=== PATIENT | female | born 1955 | race Caucasian/White ===

== ENCOUNTER 2018-05-24 11:10 | Inpatient (IN) ==
--- NOTE | 2018-05-24 07:25 | P.HPUP ---
The Pre-Admit History and Physical Examination regarding the above named patient was reviewed (including, but not limited to, vital signs, heart, lungs, co-morbid conditions), and upon re-examination it is noted that: the patient's condition has not significantly changed since the last examination.
[2018-05-24] MEDS ORDERED: Metoprolol Tartrate 25 MG Tablet PO SCH (11:45)
[2018-05-24] MEDS ORDERED: Chlorhexidine Gluconate 2% 1 Pack (2 Cloths) TOPICAL SCH (11:45)
[2018-05-24] MEDS ORDERED: Sodium Chlor 0.9% Inj 500 ML IV.SIG SCH (12:00)
[2018-05-24] MEDS ORDERED: Succinylcholine Inj 100 MG/5 ML Syringe IV.PUSH ONE (12:05)
[2018-05-24] MEDS ORDERED: Lidocaine PF 1% Inj 5 ML Syringe INFILTRATN ONE (12:05)
[2018-05-24] MEDS ORDERED: Phenylephrine/NS 1000 MCG/10ML Syringe IV.PUSH ONE (12:05)
[2018-05-24] MEDS ORDERED: Glycopyrrolate Inj 1 MG/5 ML Syringe IV.PUSH ONE (12:05)
--- NOTE | 2018-05-24 14:34 | P.OP ---
- Preoperative Diagnosis (1) Colon cancer (2) Rectovaginal fistula - Postoperative Diagnosis (1) Colon cancer (2) Rectovaginal fistula Date of procedure: 05/24/18 Procedure: Urologic surgery procedures: Cystoscopy and placement of bilateral ureteral catheters. Anesthesia: GETA Surgeon: Moses Samson MD Estimated blood loss (mL): 0 Pathology: none sent Operation and Findings: Urologic indication for procedures: Consulted intraoperatively to place bilateral ureteral catheters to aid in visualization of this patient's ureters during her colorectal procedure. Urologic surgery procedures in detail: Concurrent with the colorectal surgeons, I proceeded with cystoscopy and placement of bilateral ureteral catheters as follows: Initially cystoscopic evaluation was performed utilizing the rigid cystoscope with the 22 Irish sheath and the 30 lens. The patient was noted to have a pronounced cystocele. Inspection of the bladder demonstrated both right and left ureteral orifices to be in correct anatomic position draining clear yellow urine. There were no bladder mucosal lesions, calculi or diverticula formation. There were no areas suspicious for fistula formation. I then proceeded to pass a sensor 0.035 wire up the patient's left ureter until a small amount of resistance was met. A 6 Irish open-ended ureteral catheter was then advanced over the wire 25 cm in a cephalad direction. With the catheter in place, the wire was withdrawn and reintroduced through secondary site via the cystoscope. In similar fashion the contralateral side was accomplished. With both catheters in place, the wire and cystoscope were withdrawn and a 16 Irish 10 cc Thomas catheter was placed. Both ureteral catheters were anchored to the Thomas via a connector and all 3 catheters placed to gravity drainage. This completes the urologic surgery portion of combined procedures on this patient.
[2018-05-24] MEDS ORDERED: Sugammadex Inj 200 MG/2 ML Vial IV.PUSH ONE (15:21)
[2018-05-24] MEDS ORDERED: Ketamine Inj 50 MG/5 ML Syringe IV.PUSH ONE ×2 (15:24→16:56)
[2018-05-24] MEDS ORDERED: Potassium Chlor 20 mEq Premix 20 MEQ/100 ML PIGGYBACK IV.SIG PRN (18:49)
[2018-05-24] MEDS ORDERED: Ketorolac Inj 30 MG/ML (IVP) Vial IV.PUSH PRN (18:49)
[2018-05-24] MEDS ORDERED: Potassium Chlor 40 mEq Premix 40 MEQ/100 ML PIGGYBACK IV.SIG PRN (18:49)
[2018-05-24] MEDS ORDERED: Acetaminophen 325 MG Tablet PO PRN (18:49)
[2018-05-24] MEDS ORDERED: fentaNYL Citrate Inj 100 MCG/2 ML Ampul ONE (19:10)
[2018-05-24] MEDS ORDERED: Morphine Inj 4 MG/ML Vial ONE (19:11)
[2018-05-24] MEDS ORDERED: Ketorolac Inj 30 MG/ML (IVP) Vial ONE (19:14)
[2018-05-24 19:25] LABS: Baso # (Auto) 0.1 th/mm3 (0.0-0.2); Baso % (Auto) 0.5 % (0.0-2.0); Eos % (Auto) 0.4 % (0.0-4.0); Hematocrit 40.1 % (35.0-46.0); Hemoglobin 13.6 gm/dL (11.6-15.3); Lymph # (Auto) 1.9 th/mm3 (1.0-4.8); Lymph % (Auto) 15.2 % (9.0-44.0); Mean Corpuscular Hemoglobin 33.4 pg (27.0-34.0); Mean Corpuscular Volume 98.3 fL (80.0-100.0); Mean Platelet Volume 8.4 fL (7.0-11.0); Mono % (Auto) 7.6 % (0.0-8.0); Neut # (Auto) 9.6 th/mm3 (1.8-7.7); Neut % (Auto) 76.3 % (16.0-70.0); Platelet Count 243 th/mm3 (150-450); Red Blood Count 4.08 mil/mm3 (4.00-5.30); Red Cell Distribution Width 12.3 % (11.6-17.2); White Blood Count 12.5 th/mm3 (4.0-11.0)
[2018-05-24] MEDS ORDERED: *morphine SULFATE 4 MG/ML PERIprocedure ONLY ONE (19:51)
[2018-05-24] MEDS: KCL 20 mEq/D5W/NaCl 0.9% Inj 1,000 ML IV.CONT SCH (19:54)
[2018-05-24] MEDS ORDERED: Naloxone Inj 0.4 MG/ML Vial IV.PUSH PRN (23:56)
[2018-05-25] MEDS: KCL 20 mEq/D5W/NaCl 0.9% Inj 1,000 ML IV.CONT SCH ×4 (01:06→19:57)
[2018-05-25 06:01] LABS: Baso % (Auto) 0.1 % (0.0-2.0); Hematocrit 37.1 % (35.0-46.0); Hemoglobin 12.6 gm/dL (11.6-15.3); Lymph # (Auto) 0.5 th/mm3 (1.0-4.8); Lymph % (Auto) 2.8 % (9.0-44.0); Mean Corpuscular HGB Conc 33.9 % (32.0-36.0); Mean Corpuscular Hemoglobin 33.5 pg (27.0-34.0); Mean Corpuscular Volume 98.9 fL (80.0-100.0); Mean Platelet Volume 8.6 fL (7.0-11.0); Mono # (Auto) 1.5 th/mm3 (0.0-0.9); Mono % (Auto) 7.9 % (0.0-8.0); Neut # (Auto) 16.5 th/mm3 (1.8-7.7); Neut % (Auto) 89.2 % (16.0-70.0); Platelet Count 242 th/mm3 (150-450); Red Blood Count 3.75 mil/mm3 (4.00-5.30); Red Cell Distribution Width 12.8 % (11.6-17.2); White Blood Count 18.5 th/mm3 (4.0-11.0)
[2018-05-25 06:26] LABS: Calcium 7.3 mg/dL (8.5-10.1); Carbon Dioxide 20.2 meq/L (21.0-32.0); Potassium 4.6 meq/L (3.5-5.1)
[2018-05-25 06:40] LABS: Total Protein 5.2 g/dL (6.4-8.2)
[2018-05-25 08:11] LABS: Lymphocytes 5 % (9-44); Monocytes 2 % (0-8); Platelet Estimate Normal (Normal); Platelet Morphology Normal (Normal); RBC Morphology Normal (Normal)
[2018-05-25] MEDS: Pantoprazole Inj 40 MG Vial IV.PUSH SCH (09:11)
[2018-05-25] MEDS: Sertraline 100 MG Tablet PO SCH (09:12)
[2018-05-25] MEDS: Morphine Inj 30 MG/30 ML PCA.VIAL PCA PRN (12:24)
--- NOTE | 2018-05-25 14:02 | P.PNWCN ---
Wound Care Nurse Consult Description: Received ostomy management consult from Doctor Xavier for stoma Communicated with: PILI Rodrigues and Patient Recommendation: Please change ostomy appliance every 5 to 7 days. Empty pouch when 1/3 to 1/2 full. Do not tape wafer edges when leaking, please change ostomy appliance. Bowel Diversion Stoma - Bowel Stoma ileostomy L lower quadrant Stoma Edema: No Stoma Appearance: Beefy Red, Protruding, Round Collection Device: Two-piece Drainage Description: Blood-Tinged Wafer Size: 1 3/4 Moldable 45mm Jolly-Stomal Surrounding Tissue Sensation Description: No Symptoms - Additional Information Additional Information: Patient seen on [facility] for ostomy teaching. Education kit was delivered. Spoke with patient, patient has had an ostomy for 20 years and Four surgeries. Has had an ileostomy before. Has new ileostomy on LLQ now.Patient is familiar with stoma appearance, changing appliance, emptying appliance is enrolled in [employer] program already and gets free samples. Stoma is visible through transparent pouch and is pink in color. Minimal amount of sero-sanguinous drainage is noted in pouch. Will follow up with patient for ostomy appliance change and for questions.
[2018-05-25] MEDS: traZODone 100 MG Tablet PO SCH (20:34)
--- NOTE | 2018-05-25 23:10 | P.PNCS ---
Subjective Colorectal Surgery Post Op Day #: 1 Interval history: afebrile, VSS UO good ODALYS serous Objective Result Diagrams: 05/25/18 04:54 05/25/18 04:54 Objective Remarks: PE alert Abd - soft, wounds dry, stoma pink, 1 stent dc'd Assessment and Plan - Plan Imp: stable post-op OOB decr IVF local wound care
[2018-05-26] MEDS: KCL 20 mEq/D5W/NaCl 0.9% Inj 1,000 ML IV.CONT SCH ×2 (00:50→12:33)
[2018-05-26 06:26] LABS: Baso % (Auto) 0.2 % (0.0-2.0); Eos % (Auto) 0.2 % (0.0-4.0); Hematocrit 32.5 % (35.0-46.0); Hemoglobin 11.3 gm/dL (11.6-15.3); Lymph # (Auto) 1.2 th/mm3 (1.0-4.8); Lymph % (Auto) 7.2 % (9.0-44.0); Mean Corpuscular HGB Conc 34.9 % (32.0-36.0); Mean Corpuscular Hemoglobin 34.2 pg (27.0-34.0); Mean Corpuscular Volume 97.8 fL (80.0-100.0); Mean Platelet Volume 8.2 fL (7.0-11.0); Mono # (Auto) 1.5 th/mm3 (0.0-0.9); Mono % (Auto) 9.5 % (0.0-8.0); Neut # (Auto) 13.5 th/mm3 (1.8-7.7); Neut % (Auto) 82.9 % (16.0-70.0); Platelet Count 201 th/mm3 (150-450); Red Blood Count 3.32 mil/mm3 (4.00-5.30); White Blood Count 16.3 th/mm3 (4.0-11.0)
[2018-05-26 07:14] LABS: Calcium 7.9 mg/dL (8.5-10.1); Carbon Dioxide 24.9 meq/L (21.0-32.0); Potassium 4.1 meq/L (3.5-5.1)
[2018-05-26] MEDS: Sertraline 100 MG Tablet PO SCH (09:34)
[2018-05-26] MEDS: Pantoprazole Inj 40 MG Vial IV.PUSH SCH (09:34)
--- NOTE | 2018-05-26 20:55 | P.PNCS ---
Subjective Colorectal Surgery Post Op Day #: 2 Interval history: afebrile, VSS UO good stent dc'd ODALYS less Objective Result Diagrams: 05/26/18 06:15 05/26/18 06:15 Objective Remarks: PE alert Abd - soft, wounds dry, packing changed Assessment and Plan - Plan Imp: OOB decr IVF local wound care start PO
[2018-05-26] MEDS: traZODone 100 MG Tablet PO SCH (21:00)
[2018-05-26] MEDS: Morphine Inj 30 MG/30 ML PCA.VIAL PCA PRN (22:50)
--- NOTE | 2018-05-27 02:45 | MP ---
cc: Nick Xavier MD DATE OF OPERATION: 05/24/2018 PREOPERATIVE DIAGNOSES: Rectovaginal fistula with diversion colitis, history of previous colon cancer, attention to ileostomy. PROCEDURES PERFORMED: Exploratory laparotomy with extensive lysis of adhesions, total abdominal proctocolectomy, and takedown of loop ileostomy with creation of end ileostomy. POSTOPERATIVE DIAGNOSES: 1. 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 2. History of colon cancer. 3. 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 SURGEON: Nick Xavier MD. DISHWASHER PREPARER: Dr. Victor Hugo Chu. DESCRIPTION OF PROCEDURE: The patient was placed in the supine position. After adequate general anesthesia, her legs were placed in the universal stirrups and supported appropriately. The abdomen and perineum were then prepped with Betadine solution and draped in usual sterile fashion. With Dr. Chu's assistance, the abdomen was opened through the previous midline incision, encountering very dense adhesions upon entering the abdominal cavity. These adhesions were tediously dissected free from the peritoneal cavity, opening up the peritoneal space. Further lengthy dissection was necessary to free the small bowel from the pelvis and elevate the small bowel off the left colon. Quite a lengthy dissection was necessary until the entire bowel was freed, and the pelvis was fully exposed. Final inspection of the abdomen revealed the colon to be quite atrophic from disuse, but no evidence of intra-abdominal abscess. The liver was palpated and felt to be pretty unremarkable. The gallbladder was collapsed and had no stones. No inflammatory process. The stomach and duodenum were normal. The ileostomy site was somewhat chronically inflamed, but no acute abscess was noted. After mobilizing the small bowel out of the pelvis and off the sidewalls, the colon was identified and dissected down into the pelvis. The right and left ureteral stents were carefully palpated and preserved. Once the colon was identified, a plane was developed posteriorly, getting into the presacral space, which was very adherent to the presacral fascia. This plane was dissected down toward the tip of the coccyx and the pelvic floor. The bowel was then dissected proximally off the presacral fascia and mobilized off the left pelvic sidewall. Initially, a plane was developed in the mesentery, and the bowel was divided in hopes of preserving the proximal colon. After dividing the bowel, the mesentery was taken between Kellys, obtaining hemostasis with Vicryl ties. The bowel mobilized down to the pelvic floor, mobilizing the bowel all the way down to the previous coloanal anastomosis. The posterior vaginal wall was also dissected free from the specimen. Dr. Chu then went to the perineal aspect of the patient and finished the proctectomy, freeing up the vaginal mucosa and closing the fistula with interrupted Vicryl stitches. The specimen was then removed through the pelvic wound. The pelvis was then irrigated copiously with normal saline. Adequate hemostasis achieved. Dr. Chu closed the perineal wound in several layers with interrupted Vicryl sutures and subcuticular Vicryl sutures for the skin. Next, the proximal colon was fully mobilized. However, there was very small amount of remaining colon. It was felt best to remove the remaining colon and perform an ileostomy rather than doing an anastomosis to a very short segment of remaining transverse colon. In that regard, the loop colostomy was taken down from its attachments to the abdominal wall, having some difficulty due to the mesh that was wrapped around the stoma at the previous hernia repair. After fully mobilizing the colon, the small bowel was returned to the abdominal cavity. A point was chosen proximal to the loop ileostomy, an avascular plane created in the mesentery, and the bowel divided using the OLGA stapling device. The mesenteric vessels were then progressively clamped, removing the remaining colon which only was about 12 inches. After completion, the abdomen was irrigated copiously with normal saline. Adequate hemostasis achieved at all sites. A circular stab wound was created in the left side of the abdomen at the previous stoma site, and the incision was taken down through the subcutaneous tissues opening up the fascia, noting that there was mesh at this repair as well, and bringing up the end of the ileum through this opening without tension and with good blood supply. Maged-Walters drain was placed down into the pelvis, brought up through a stab wound in the left lower quadrant, secured to the skin with a nylon suture. Next, attention was turned to the previous ileostomy site, and additional mesh was excised from the fascia, taking all the Prolene sutures and mesh that could be palpated and visible from the anterior rectus fascia. At completion, there did not appear to be any remaining mesh. The abdominal wall was then closed in a single layer using #1 PDS sutures to reapproximate the muscle layers with a fairly secure closure. There was no tension on the repair. The previous fistula site was irrigated and debrided, getting back to healthy skin, and the wound packed open with Kerlix gauze. The ileostomy site skin was then closed with a row of surgical alise. The midline incision was then closed using a #1 PDS suture to reapproximate the midline fascia. Subcutaneous tissue was irrigated copiously, and the skin closed with a row of surgical alise. Wound area washed with normal saline and dried, sterile dressing of Telfa and gauze applied. Finally, the OLGA staple line was removed from the end of the small bowel and the stoma matured in the usual Ирина fashion by placing a row of interrupted chromic catgut sutures around the circumference, everting the stoma. At completion, the stoma did appear to be viable and was patent to the fascial level. Sterile ileostomy appliance was fitted over the new stoma. The patient tolerated the procedure quite well and was brought to the recovery room in stable condition. Sponge and needle counts were correct at the end of the procedure. MD RIYA Shaw/girma/corbin , 11:21 PM , 11:35 PM
[2018-05-27] MEDS: KCL 20 mEq/D5W/NaCl 0.9% Inj 1,000 ML IV.CONT SCH ×3 (03:32→20:19)
[2018-05-27] MEDS: Pantoprazole Inj 40 MG Vial IV.PUSH SCH (09:37)
[2018-05-27] MEDS: Sertraline 100 MG Tablet PO SCH (09:37)
--- NOTE | 2018-05-27 16:42 | P.PNWCN ---
Wound Care Nurse Consult Description: Follow up for ostomy teaching for ileostomy. Communicated with: RN Makenna Cleveland 4th floor [facility] Recommendation: Please change ileostomy appliance every 3 to 5 days . Empty pouch when 1/3 to 1/ 2 full. Do not tape wafer edges when leaking, please change ostomy appliance. Bowel Diversion Stoma - Bowel Stoma Ileostomy L lower quadrant Stoma Edema: No Stoma Appearance: Beefy Red (pink in color), Round Loop Supporting Yuniel: No Collection Device: Two-piece, Cut to Fit Wafer Drainage Description: Liquid (now paste like), Brown Wafer Size: 1 3/4 Moldable 45mm Jolly-Stomal Skin Appearance: Intact Jolly-Stomal Surrounding Tissue Sensation Description: No Symptoms - Additional Information Additional Information: Patient seen for follow up teaching for ileostomy for questions and stoma assessment. Patient is comfortable with taking care of ileostomy at home. Coloplast two piece urostomy appliance is in place with transparent pouch, without leaks. Per patient appliance was applied yesterday.Stoma is round and pink in color measuring ~7/8 inches or 22 mm in diameter. Patient has a two piece [employer] 1 3/4 appliance at the bedside. RN will change if leaking, or if spout from urostomy appliance is no longer patent for draining. Urostomy appliance was left in place due to being applied yesterday and risk to skin injury with changing skin barriers to often. Will continue to follow up with patient as needed for questions during course of hospitalization.
[2018-05-27] MEDS: traZODone 100 MG Tablet PO SCH (20:15)
--- NOTE | 2018-05-27 22:24 | P.PNCS ---
Subjective Colorectal Surgery Post Op Day #: 3 Interval history: afebrile, VSS UO good ODALYS less stoma functioning Objective Result Diagrams: 05/26/18 06:15 05/26/18 06:15 Objective Remarks: PE alert Abd - soft, wounds dry, packing changed stoma pink Assessment and Plan - Plan Imp: OOB decr IVF local wound care start PO, adv PT DC plans
[2018-05-28] MEDS: Pantoprazole Inj 40 MG Vial IV.PUSH SCH (09:54)
[2018-05-28] MEDS: Sertraline 100 MG Tablet PO SCH (09:54)
--- NOTE | 2018-05-28 10:59 | P.PNCS ---
Subjective Colorectal Surgery Post Op Day #: 4 Interval history: Moving better. Sat in chair 8 hours. Will D/C SPEECH SCIENTIST and king so that pt will ambulate more. Objective Result Diagrams: 05/26/18 06:15 05/26/18 06:15 Objective Remarks: PE alert Abd - soft, wounds dry, RLQ wound not red, large thick Ileostomy output-could not see stoma nipple Assessment and Plan - Plan Imp: OOB IVs to 30/hr local wound care Regular diet DC plans for possibly tomorrow
[2018-05-28] MEDS: KCL 20 mEq/D5W/NaCl 0.9% Inj 1,000 ML IV.CONT SCH (15:23)
[2018-05-28] MEDS: traZODone 100 MG Tablet PO SCH (20:25)
[2018-05-29] MEDS: Sertraline 100 MG Tablet PO SCH (08:29)
[2018-05-29] MEDS: Pantoprazole Inj 40 MG Vial IV.PUSH SCH (08:29)
--- NOTE | 2018-05-29 11:05 | P.PNCS ---
Subjective Colorectal Surgery Post Op Day #: 5 Interval history: No N or V. Ambulating in halls.Less pain. STRUCTURAL TEST ENGINEER stopped yesterday Objective Result Diagrams: 05/26/18 06:15 05/26/18 06:15 Objective Remarks: Abd - Soft, wounds dry, RLQ wound not red,dressing just changed, serous. No purulence Stoma visualized and is pink. Assessment and Plan - Plan local wound care Regular diet Pt wants to go home tomorrow
[2018-05-29] MEDS: traZODone 100 MG Tablet PO SCH (21:42)
[2018-05-30 08:30] VITALS: O2SAT 99
--- NOTE | 2018-05-30 09:06 | P.PNCS ---
Subjective Colorectal Surgery Post Op Day #: 6 Interval history: afebrile, VSS UO good ODALYS less colt PO Objective Result Diagrams: 05/26/18 06:15 05/26/18 06:15 Objective Remarks: Abd - Soft, wounds dry, RLQ wound not red,dressing just changed, serous. Stoma visualized and is pink. Assessment and Plan - Plan local wound care Regular diet Pt wants to go home RTO 1 week
[2018-05-30] MEDS: Pantoprazole Inj 40 MG Vial IV.PUSH SCH (09:08)
[2018-05-30] MEDS: Sertraline 100 MG Tablet PO SCH (09:09)
--- NOTE | 2018-05-30 10:28 | P.DCO ---
- Home Health Nursing Order: Medical education, Signs/symptoms of disease process, Wound care and dressing changes - Certification I have seen patient Purnima Keys on 05/30/18. My clinical findings support the need for the requested home health care services because: Limited mobility due to disease progression, Deconditioned with increased weakness, Infection with risk of complications I certify that my clinical findings support that this patient is homebound because: Post-op weakness (stoma care)
[2018-05-30 12:44] VITALS: BP 112/51; PULSE 63; RESP 17; TEMP 89.2
--- NOTE | 2018-06-28 10:27 | MD ---
cc: Nick Xavier MD, Susan M ARNP DATE OF DISCHARGE: 05/30/2018 ADMITTING DIAGNOSES: 1. Rectovaginal fistula. 2. Diversion colitis. 3. Peristomal abscess formation. PROCEDURES: On 05/24/2018, exploratory laparotomy with extensive lysis of adhesions, total abdominal proctocolectomy, and takedown of loop ileostomy with creation of end ileostomy. DISCHARGE DIAGNOSES: 1. History of rectovaginal fistula. 2. Chronic active colitis. 3. Peristomal hernia and abscess formation. HISTORY OF PRESENT ILLNESS: Ms. Keys is a 63-year-old female who has been treated now for a long time after surgery elsewhere for rectal cancer. She had several complications of the surgery and ended up with an ileostomy and a rectovaginal fistula. She is living fairly well with this diversion, having had a hernia repair several years ago around the ileostomy, which has resulted in some peristomal inflammation. More recently, she has developed a fairly significant colitis, which has increased her rectal drainage and vaginal drainage, making life more miserable. Due to these multiple problems, she was brought to the hospital today to either have the vaginal fistula repaired or more probably have the colon taken out, taking down the ileostomy, and moving it to a different position to remove all the parastomal mesh and peristomal inflammation. Please see the previous history and physicals for complete past medical and surgical history. PERTINENT PHYSICAL EXAMINATION: GENERAL: Very pleasant, heavyset female in no acute distress. ABDOMEN: Abdomen was doughy and soft. Multiple incisions were well healed. No rebound or guarding. Peristomal inflammation and tracking were still present. RECTAL: Anal inspection revealed benign canal. Digital exam revealed tenderness and postop fibrosis and changes with a rectovaginal fistula easily palpable. HOSPITAL COURSE: After admission, the patient was taken to the operating room on 05/24/2018, at which point she underwent exploratory laparotomy, lysis of adhesions, total abdominal proctocolectomy, and takedown of loop ileostomy with creation of end ileostomy. She was found to have rather significant diversion type colitis and a very short remaining colon, making ileostomy the procedure stoma of choice. She had all the mesh and ileostomy taken down from the abdominal wall and a new stoma was created in the left side of the abdomen. No sign of cancer was present throughout the abdomen. She tolerated the procedure quite well. She did require some physical therapy for muscle strengthening. Her ileostomy began to function quite promptly and her diet was advanced. Her IV fluids were tapered. The patient education helped with the care of her new stoma. The patient was eating well, able to take care of her new stoma with some assistance, and was considered ready for discharge home on 05/30/2018. PATHOLOGY: Final pathology report revealed a segment of colon with luminal narrowing and transmural defect associated with rectovaginal fistula and chronic active colitis. Small intestine showed some fibroconnective tissue inflammation and chronic scar tissue and foreign body type reaction, but no tumor. POSTOPERATIVE INSTRUCTIONS: The patient was eating well and encouraged to continue a healthy regular diet, increasing her fluid intake to compensate for ileostomy losses. Local care to the wounds were to continue with wet-to-dry dressings as needed and cleansing with hydrogen peroxide. The patient was encouraged to ambulate daily and avoiding any heavy lifting or straining. All preop medications were to be resumed. Postop pain medication was provided as well. The patient will have home health care to assist with the care of her stoma and abdominal and pelvic perineal wounds. Any problems prior to the office visit, which was to be done in a week, the patient was encouraged to call for more urgent attention. MD RIYA Shaw/jamel , 05:17 PM , 05:31 PM
== END 2018-05-30 12:06 | disposition home health service (06) ==
LOC: HSDC 11:10 → HSDI 18:49 → HCPC 21:15 → N07 05-27 18:12
PROVIDERS: ADMIT Colon & Rectal Surgery; ATTEND Colon & Rectal Surgery